=== PATIENT | male | born 1955 | race Caucasian/White ===

== ENCOUNTER 2016-10-17 11:02 | Emergency (ER) | payer SELFPAY ==
[2016-10-17] MEDS ORDERED: HYDROmorphone 2 MG/1 ML IVP ONE ×2 (11:12→11:32)
[2016-10-17] MEDS ORDERED: ONDANSETRON 4 MG/2 ML VIAL IVP ONE (11:12)
[2016-10-17] MEDS ORDERED: LORazepam 2 MG/1 ML VIAL IVP ONE (11:12)
[2016-10-17] MEDS ORDERED: Sodium Chloride 0.9% 1,000 ML PRIMARY IV ONE (11:14)
--- NOTE | 2016-10-17 11:20 | PDOC ---
Back Pain / Injury HPI - General Chief Complaint: Lower Extremity Problem/Injury Stated Complaint: Lower back pain Date Seen by Provider: 10/17/16 Time Seen by Provider: 11:15 Source: Patient Exam Limitations: POSITIVE: No limitations Nurse's Notes Reviewed & Considered: Yes - History of Present Illness Initial Comments: This morning at 06 30 patient fell off of his tractor landing on his back. He' s been having low back pain with radiation down his left leg since. He is having difficulty ambulating difficulty sitting and difficulty standing. He denies any fever chills sweats, nausea vomiting diarrhea, hematuria dysuria, no rashes. He took 2 pain pills this morning at 7:30, the other at 8:30. His pain medication did not help. He was taking 5/325 hydrocodone's. Patient denies having hit his head, no loss of consciousness. Body Location Affected: REPORTS: Back Timing: REPORTS: Abrupt Duration: 4-6 hours Severity: Severe Quality: REPORTS: "Pain", Sharpness, Stabbing, Throbbing, Tenderness Context: REPORTS: Sitting, Standing, Activity, Fall (4. Lower step of his tractor.) Location at Time of Onset: REPORTS: Home Modifying Factors: improves with: Nothing (Nothing improves his pain), Movement (Any movement makes it worse) Associated Symptoms: REPORTS: Back pain Similar Symptoms Previously: No Recent Care Received: REPORTS: Denies Any Prior Injuries Related to Current Complaint?: No - Patient Home Medications Home Medications: Home Medications Hydrocodone Bit/Acetaminophen [Stuart 5-325 Tablet] 1 tab PO Q4-6H PRN tab 11/30 - Patient Allergies Allergies/Adverse Reactions: Allergies Allergy/AdvReac Type Severity Reaction Status Date / Time No Known Drug Allergies Allergy NOT Verified 10/17/16 11:08 APPLICABLE ROS - Limitations ROS Limitations: No Limitations Constitution: REPORTS: Denies Symptoms Cardiovascular: REPORTS: Denies Cardiac Symptoms Respiratory: REPORTS: Denies Resp Symptoms Neurological: REPORTS: Difficulty Walking Gastrointestinal: REPORTS: Denies GI Symptoms Endocrine: REPORTS: Denies Symptoms Musculoskeletal: REPORTS: Back Pain, Other (Pain radiates down the back of his left leg.) Genitourinary: REPORTS: Denies Symptoms Eyes: REPORTS: Denies Symptoms ENT: REPORTS: Denies Symptoms Skin: REPORTS: Denies Skin Symptoms Lympathic: REPORTS: Denies Lympathic Symptoms Immunologic: POSITIVE: Denies Symptoms Psychiatric: POSITIVE: Denies Psych Symptoms Back Physical Assessment - General Appearance General Appearance: REPORTS: Alert, Cooperative, Moderate Distress - HEENT HEENT: POSITIVE: Head Inspection Nml, Eyes Inspection Nml, Ears Inspection Nml, Nose Inspection Nml, PERRL, EOMI - Pupil Size Pupil Size: 4 mm: Bilateral - Neck Neck: POSITIVE: Non Tender, Painless ROM, Trachea Midline - Respiratory / CVS Respiratory / CVS: POSITIVE: Chest Non Tender, No Ecchymosis, Breath Sounds Normal, No Respiratory Distress, Heart Sounds Normal, Regular Rate/Rhythm - Abdomen Abdomen: Soft: (All Quadrants), Normal Bowel Sounds: (All Quadrants), Denies Tenderness: (All Quadrants) - Back Back: REPORTS: Vertebral Pt. Tenderness (Tenderness over L4 L5 S1 region with radiation along the sciatic distribution along the left leg.) - Skin Skin: REPORTS: Intact, Normal For Race, Warm, Dry, No Rash - Extremities Extremity Assessment: Non-Tender: (RUE), (LUE), (RLE), Normal ROM: (RUE), (LUE) , No Edema: (ALL), No Swelling: (ALL), Pelvis Stable: (ALL), Tender: (LLE), Abnormal ROM: (LLE), Bony Point Tenderness: (LLE) (ischelle tuberosity), Unable / Painful to Bear Weight: (LLE), (RLE), Injuries Inconsistent with Stated Complaint: (LLE) Musculoskeletal: REPORTS: Back Pain - Neurological / Psychological Neuro / Psych: POSITIVE: Oriented X3, facsimile operator Normal As Tested, Motor Normal, Sensation Normal, Mood Appropriate, Affect Appropriate Back Progress - Results Reviewed by me Xrays/CTs/US Reviewed: Yes Discussed with Radiologist: Yes Lab Results Reviewed: Yes Lab Results:: Laboratory Results 10/17/16 Range/Units 11:12 WBC 6.36 (4.8-10.8) 10^3/uL RBC 5.28 (4.70-6.10) 10^6/uL Hgb 16.0 (14.0-18.0) g/dL Hct 46.1 (42.0-52.0) % MCV 87.3 (80-90) FL MCH 30.3 (27-31) PG MCHC 34.7 (33-37) g/dL RDW Std Deviation 40.3 (39-50) fL RDW Coeff of Miguel Angel 12.8 (11.5-14.5) % Plt Count 195 (140-350) 10*3/uL MPV 9.5 (7.4-12.2) FL Immature Gran % (Auto) 0.3 (0-5) % Neut % (Auto) 59.9 (50-80) % Lymph % (Auto) 27.7 (10-50) % [place] % (Auto) 9.1 (5-15) % Eos % (Auto) 2.7 (0-8) % Baso % (Auto) 0.3 (0-1) % Immature Gran # (Auto) 0.02 10*3/UL Neut # (Auto) 3.81 10*3/UL Lymph # (Auto) 1.76 10*3/uL [place] # (Auto) 0.58 (0.3-0.8) 10*3/UL Eos # (Auto) 0.17 10*3/UL Baso # (Auto) 0.02 10*3/UL WBC Morphology Comment Normal morphology (NORM) Plt Morphology Comment Normal morphology (NORM) RBC Morph Comment Normal morphology (NORM) PT 10.7 (9.7-11.4) secs INR 1.04 (0.00-5.90) N/A - Patient's Progress Pain Medication Addressed: POSITIVE: Yes Re-Examine Time: 13:13 Status: POSITIVE: Improved MDM / ED Course: Patient was evaluated, blood drawn and sent to lab, ct of back obtained. He received Dilaudid, zofran and normal saline. His pain improved. He then received Dexamenthasone and further improved. Labs: unremarkable. CT: No fractures Assessment: Sciatica excacerbation, acute on chronic. - Consult Counseled: POSITIVE: Patient, RE: Lab Results, RE: Radiology Results, RE: DX, RE : Need for F/U Patient Care Time - Estimated PCT Patient Care Time (In Minutes): 30 Vital Signs - Recent Vital Signs Vital Signs: Vital Signs (Last 8 hours) Temp Pulse Resp BP Pulse Ox 10/17/16 11:10 95.4 F L 65 18 167/96 96 - VS Reviewed Vital Signs Reviewed: Yes Discharge Clinical Impression: Pain in lower extremity due to sciatica Discharge Disposition: Discharged to Home Condition: Stable Patient Instructions Given at Discharge: Sciatica (ED)
[2016-10-17 11:25] LABS: BASOPHILS # (AUTO) 0.02 10*3/UL; BASOPHILS % (AUTO) 0.3 % (0-1); EOSINOPHILS % (AUTO) 2.7 % (0-8); HEMATOCRIT 46.1 % (42.0-52.0); IMM GRAN % (AUTO) 0.3 % (0-5); IMM GRAN# (AUTO) 0.02 10*3/UL; LYMPHOCYTES # (AUTO) 1.76 10*3/uL; LYMPHOCYTES % (AUTO) 27.7 % (10-50); MEAN CORPUSCULAR HEMOGLOBIN 30.3 PG (27-31); MEAN CORPUSCULAR HGB CONC 34.7 g/dL (33-37); MEAN PLATELET VOLUME 9.5 FL (7.4-12.2); MONOCYTES # (AUTO) 0.58 10*3/UL (0.3-0.8); MONOCYTES % (AUTO) 9.1 % (5-15); NEUTROPHILS # (AUTO) 3.81 10*3/UL; NEUTROPHILS % (AUTO) 59.9 % (50-80); RDW COEFFICIENT OF VARIATION 12.8 % (11.5-14.5); RED BLOOD COUNT 5.28 10^6/uL (4.70-6.10); WHITE BLOOD COUNT 6.36 10^3/uL (4.8-10.8)
[2016-10-17 11:26] VITALS: RESP 18; TEMP 95.4
[2016-10-17 11:28] LABS: PLATELET MORPHOLOGY COMMENT NORMAL MORPHOLOGY (NORM)
[2016-10-17 11:32] LABS: PROTHROMBIN TIME 10.7 secs (9.7-11.4)
[2016-10-17] MEDS ORDERED: DEXAMETHASONE PF 10 MG/1 ML VIAL IVP ONE (12:25)
--- NOTE | 2016-10-17 12:56 | DI ---
HISTORY: Fell from a tractor. Low back pain. COMPARISON: None available. TECHNIQUE: Unenhanced images of the lumbar spine were obtained and submitted for interpretation. FINDINGS: There is degenerative change. Vertebral body height is maintained. Disc spaces are generally preserved. There is a transitional v ertebrae at L5-S1. There is probably some degree of degenerative disease at L4-5 and L5-S1. This is better evaluated wi th MRI. There is diffuse facet arthropathy worse at L5-S1. The spinous processes are intact. The transverse processes are intact. The pedicles are intact. The lamina are intact. Sacroiliac joints mildly degenerated. IMPRESSION: 1. No compression fracture.
[2016-10-17] MEDS ORDERED: KETOROLAC 30 MG/1 ML VIAL IVP ONE (13:17)
[2016-10-17] MEDS ORDERED: KETOROLAC 30 MG/1 ML VIAL ONE (13:23)
== END 2016-10-17 13:30 | disposition home or self-care (01) ==
LOC: ER 11:02
DX: M54.42 Lumbago with sciatica, left side (principal); W17.89XA Other fall from one level to another, initial encounter
CPT/HCPCS: 72131; 85025; 85610; 96361; 96374; 96375; 99283 ×2; J1885; J1100; J1170; J2060; J2405; J7030